=== PATIENT | female | born 1955 | race Two or more races ===

== ENCOUNTER 2016-08-28 00:39 | Inpatient (IN) | payer OTHER ==
[2016-08-28] VITALS (10 sets, daily range): BP systolic 117–138; BP diastolic 59–76; PULSE 48–89; RESP 16–20; Ht 160 cm; Wt 97.8 kg
[~2016-08-28] VITALS: Ht 160 cm; Wt 97.8 kg
[~2016-08-28 00:39] MED LIST: ALBU8.5H3; AMLO-145 PO; ASPI-664; GLUC1CAP48 PO; LORA10TA3 PO; METO100T PO; PRED20TA PO; hctz; same meds
[2016-08-28] MEDS ORDERED: ASPIRIN 325 MG TAB PO STA (00:48)
[2016-08-28] MEDS ORDERED: SOD CHLORIDE 0.9% 500 ML IV STA (00:48)
[2016-08-28 01:41] LABS: ADD SCAN DIFF NO
[2016-08-28 01:44] LABS: BASOPHILS % 0.5 % (0.0-2.0); EOSINOPHILS # 0.1 10^3/ul (0.0-0.5); EOSINOPHILS % 1.8 % (0.0-7.0); HEMATOCRIT 39.7 % (37.0-47.0); HEMOGLOBIN 12.9 g/dl (12.0-16.0); LYMPHOCYTES # 2.1 10^3/ul (0.8-2.9); LYMPHOCYTES % 37.8 % (15.0-51.0); MEAN CORPUSCULAR HEMOGLOBIN 30.7 pg (29.0-33.0); MEAN CORPUSCULAR HGB CONC 32.5 g/dl (32.0-37.0); MEAN CORPUSCULAR VOLUME 94.5 fl (82.0-101.0); MEAN PLATELET VOLUME 12.1 fl (7.4-10.4); MONOCYTE # 0.7 10^3/ul (0.3-0.9); MONOCYTES % 13.3 % (0.0-11.0); NEUTROPHIL # 2.5 10^3/ul (1.6-7.5); NEUTROPHILS % 46.2 % (39.0-77.0); PLATELET COUNT 202 10^3/UL (140-415); RED CELL DISTRIBUTION WIDTH 14.1 % (11.5-14.5); WHITE BLOOD COUNT 5.5 10^3/ul (4.8-10.8)
--- NOTE | 2016-08-28 01:47 | ERA ---
ER Documentation Chief Complaint Date/Time DATE: 08/28/16 TIME: 01:46 Chief Complaint Pt staes, "I feel weird and my heart is beating." HPI This 61-year-old female presents to the ER with her son for feeling of palpitations, chest discomfort and impending doom. Says she does not initially have chest pain but has a very strange sensation in her chest that she has not had before this started 2 hours prior and she still feels it. Denies nausea has some shortness of breath. Also feels somewhat lightheaded. Patient is atrial fibrillation initially denied that she had any history of an irregular heartbeat. However the patient is on Eliquis and metoprolol. ROS All systems reviewed and are negative except as per history of present illness. Medications Home Meds Reported Medications [same meds] No Conflict Check 11/28/12 [hctz] No Conflict Check, 25 CAP DAILY 09/29/12 Gluc 2KCL/Chondr/Mary Hy/Hy Ac (GLUCOSAMINE & CHONDROITIN CAP) 1 Each Capsule, 1 EACH PO DAILY 09/29/12 Loratadine* (Loratadine*) 10 Mg Tablet, 10 MG PO DAILY 09/29/12 Amlodipine Besylate* (Amlodipine Besylate*) 5 Mg Tablet, 5 MG PO DAILY 09/29/12 Aspirin (Aspirin Low Dose) 81 Mg Tablet.dr, daily 04/27/11 Metoprolol (Lopressor) 100 Mg Tablet, DAILY 04/27/11 Prednisone (Prednisone) 20 Mg Tablet, 1 TAB PO BID 04/27/11 Albuterol Sulfate* (Proair HFA*) 8.5 Gm Hfa.aer.ad 04/27/11 Allergies Allergies: Coded Allergies: No Known Allergy (Verified , 11/28/12) PMhx/Soc Medical and Surgical Hx: pt denies Surgical Hx History of Surgery: No Anesthesia Reaction: No Hx Neurological Disorder: No Hx Respiratory Disorders: No Hx Cardiac Disorders: Yes (hypertension) Hx Psychiatric Problems: No Hx Miscellaneous Medical Probl: No Hx Alcohol Use: No Hx Substance Use: No Hx Tobacco Use: No Smoking Status: Never smoker Physical Exam Vitals Vital Signs Date Time Temp Pulse Resp B/P Pulse Ox O2 Delivery O2 Flow Rate FiO2 08/28/16 03:11 66 16 136/86 97 Room Air 08/28/16 01:40 72 16 142/80 100 Room Air 08/28/16 00:43 98.1 94 16 143/79 100 Physical Exam Const: [] Mild distress, appears in Head: Atraumatic Eyes: Normal Conjunctiva ENT: Normal External Ears, Nose and Mouth. Neck: Full range of motion..~ No meningismus. Resp: Clear to auscultation bilaterally Cardio: Irregularly irregular, no murmurs Abd: Soft, non tender, non distended. Normal bowel sounds Skin: No petechiae or rashes Back: No midline or flank tenderness Ext: No cyanosis, or edema Neur: Awake and alert and oriented 3 Psych: Normal Mood and Affect Result Diagram: 08/28/1611408/28/16114 Results 24 hrs Laboratory Tests Test 08/28/16 01:15 White Blood Count 5.510^3/ul Red Blood Count 4.2010^6/ul Hemoglobin 12.9g/dl Hematocrit 39.7% Mean Corpuscular Volume 94.5fl Mean Corpuscular Hemoglobin 30.7pg Mean Corpuscular Hemoglobin Concent 32.5g/dl Red Cell Distribution Width 14.1% Platelet Count 08839^3/UL Mean Platelet Volume 12.1fl Neutrophils % 46.2% Lymphocytes % 37.8% Monocytes % 13.3% Eosinophils % 1.8% Basophils % 0.5% Nucleated Red Blood Cells % 0.0/100WBC Neutrophils # 2.510^3/ul Lymphocytes # 2.110^3/ul Monocytes # 0.710^3/ul Eosinophils # 0.110^3/ul Basophils # 0.010^3/ul Nucleated Red Blood Cells # 0.010^3/ul Prothrombin Time 15.3Sec Prothrombin Time Ratio 1.2 INR International Normalized Ratio 1.20 Activated Partial Thromboplast Time 29.0Sec Sodium Level 139mmol/L Potassium Level 3.4mmol/L Chloride Level 99mmol/L Carbon Dioxide Level 29mmol/L Anion Gap 14 Blood Urea Nitrogen 10mg/dl Creatinine 0.68mg/dl Glucose Level 115mg/dl Calcium Level 9.3mg/dl Troponin I < 0.012ng/ml B-Type Natriuretic Peptide 564PG/ML Current Medications Medications (Trade) Dose Ordered Sig/Jordon Route PRN Reason Start Time Stop Time Status Last Admin Dose Admin Sodium Chloride (NS) 500 ml @ 500 mls/hr Q1H STAT IV 08/28/16 00:48 08/28/16 01:47 DC 08/28/16 01:23 Aspirin (Aspirin) 325 mg ONCE STAT PO 08/28/16 00:48 08/28/16 00:50 DC 08/28/16 01:23 Nitroglycerin (Nitroglycerin (Sl Tab) 0.4 Mg) 1 tab ONCE ONCE SL 08/28/16 03:00 08/28/16 03:01 DC 08/28/16 02:59 Procedures/MDM Chest pain/discomfort and palpitations and patient with multiple risk factors for acute coronary syndrome. Initial troponin is negative. Patient was given aspirin 325 mg as well as nitroglycerin. She has rate controlled atrial fibrillation. She will be admitted for trending of troponins as well as further cardiac workup. I spoke to Dr. Locke who will be admitting. EKG interpretation: Atrial fibrillation rate of 72, 2 PVCs, no ST or T-wave changes concerning for acute ischemia, normal axis. case monitor interpretation: Rate controlled A. fib no arrhythmias. Chest x-ray interpretation: Poor inspiration. I see no acute process. I see no infiltrates, no pulmonary edema, no widened mediastinum, no fractures Departure Diagnosis: Primary Impression: Chest pain Additional Impression: Palpitations Condition: Stable LINDSAY FARRIS DO Aug 28, 2016 01:47
--- NOTE | 2016-08-28 01:50 | RADRPT ---
PROCEDURE: XR Chest. CLINICAL INDICATION: Chest pain TECHNIQUE: Single frontal view of the chest was obtained COMPARISON: 09/29/2012 FINDINGS: The patient is rotated to the right. There is hypoinflation of the lungs. There is enlargement of the cardiac silhouette and mild pulmonary vascular congestion appearing since previous study. Hypoi nflation of the lungs accentuates the lung interstitium. Mild bibasilar atelectasis is apparent. C alcification in the aortic arch. ECG leads projected over the chest. Degenerative changes in thora cic spine. There is no pleural effusion or pneumothorax. IMPRESSION: Hypoinflation lungs, enlargement of the cardiac silhouette, mild pulmonary vascular congestion and b ibasilar atelectasis appearing since previous study. Please see above. RPTAT: HJES .Andre Shields MD, MD Date Time Electronically viewed and signed by .Andre Shields MD, MD on 08/28/2016 01:50 .S/
[2016-08-28 02:09] LABS: INR 1.2; PROTIME 15.3 Sec (12.2-14.2); PT RATIO 1.2
[2016-08-28 02:14] LABS: ANION GAP 14 (8-16); BLOOD UREA NITROGEN 10 mg/dl (7-20); CALCIUM 9.3 mg/dl (8.4-10.2); CARBON DIOXIDE 29 mmol/L (21-31); CHLORIDE 99 mmol/L (97-110); CREATININE 0.68 mg/dl (0.44-1.00); GLUCOSE 115 mg/dl (70-220); POTASSIUM 3.4 mmol/L (3.5-5.1); SODIUM 139 mmol/L (135-144)
[2016-08-28 02:30] LABS: B-TYPE NATRIURETIC PEPTIDE 564 PG/ML (0-125)
[2016-08-28 02:51] LABS: TROPONIN-I < 0.012 ng/ml (0.00-0.12)
[2016-08-28] MEDS ORDERED: NITROGLYCERIN (SL) 0.4 MG TAB SL ONE (03:00)
[2016-08-28] MEDS ORDERED: ONDANSETRON 4 MG INJ IV PRN (05:00)
[2016-08-28] MEDS ORDERED: ACETAMINOPHEN 325 MG TAB PO PRN (05:00)
[2016-08-28] MEDS ORDERED: APIX5TAB PO (07:48)
[2016-08-28] MEDS ORDERED: METOPROLOL 50 MG TAB PO SCH (09:00)
[2016-08-28] MEDS: ASPIRIN (EC) 81 MG TAB PO SCH (09:08)
[2016-08-28] MEDS: APIXABAN 5 MG TABLET PO SCH ×2 (09:08→21:35)
[2016-08-28] MEDS: AMLODIPINE 10 MG TAB PO SCH (09:09)
[2016-08-28] MEDS: HYDROCHLOROTHIAZIDE 25 MG TAB PO SCH (09:09)
[2016-08-28 12:08] LABS: ADD SCAN DIFF NO
[2016-08-28] MEDS ORDERED: POTASSIUM CHLORIDE (SR) 20 MEQ TAB PO STA (12:10)
[2016-08-28 12:13] LABS: BASOPHILS % 0.5 % (0.0-2.0); EOSINOPHILS % 0.7 % (0.0-7.0); HEMATOCRIT 37.6 % (37.0-47.0); HEMOGLOBIN 12.5 g/dl (12.0-16.0); LYMPHOCYTES # 1.7 10^3/ul (0.8-2.9); LYMPHOCYTES % 40.1 % (15.0-51.0); MEAN CORPUSCULAR HEMOGLOBIN 31.1 pg (29.0-33.0); MEAN CORPUSCULAR HGB CONC 33.2 g/dl (32.0-37.0); MEAN CORPUSCULAR VOLUME 93.5 fl (82.0-101.0); MEAN PLATELET VOLUME 12.3 fl (7.4-10.4); MONOCYTE # 0.5 10^3/ul (0.3-0.9); NEUTROPHILS % 46.5 % (39.0-77.0); PLATELET COUNT 187 10^3/UL (140-415); RED BLOOD COUNT 4.02 10^6/ul (4.20-5.40); RED CELL DISTRIBUTION WIDTH 14.1 % (11.5-14.5); WHITE BLOOD COUNT 4.2 10^3/ul (4.8-10.8)
--- NOTE | 2016-08-28 12:14 | HP ---
Date/Time of Note Date/Time of Note DATE: 08/28/16 TIME: 12:12 Assessment/Plan VTE Prophylaxis VTE Prophylaxis Intervention: other Lines/Catheters IV Catheter Type (from [facility]): Peripheral IV Assessment/Plan Chief Complaint/Hosp Course 1) chest pain - rule out myocardial infarction - check 2D echocardiogram - consult cardiology - monitor 2) hypertension - continue medications - monitor blood pressure Problems: HPI/ROS Admit Date/Time Admit Date/Time Aug 28, 2016 at 04:37 Hx of Present Illness Patient with hypertension comes in with 1 day of chest discomfort. Pain occurred on 2 different occasions lasting several minutes each time. She denies any associated shortness of breath, nausea or vomiting. Patient denies any other medical problems including diabetes, hypercholesterolemia. Patient had previously seen Dr. Nguyen. PMH/Family/Social Past Medical History Medical History: hypertension Social History Smoking Status: Never smoker Exam/Review of Systems Vital Signs Vitals Vital Signs Date Time Temp Pulse Resp B/P Pulse Ox O2 Delivery O2 Flow Rate FiO2 08/28/16 12:09 98.8 67 20 126/59 98 08/28/16 06:30 Room Air Exam Constitutional: well developed Head: atraumatic, normocephalic Neck: supple Respiratory: clear to auscultation Cardiovascular: regular rate and rhythm Gastrointestinal: non-tender, soft Extremities: normal pulses Labs Result Diagram: 08/28/1611408/28/16 011 Medications Medications Current Medications Amlodipine Besylate (Norvasc) 10 mg DAILY PO Last administered on 08/28/16 09: 09; Admin Dose 10 MG; Start 08/28/16 at 09:00 Aspirin (Halfprin) 81 mg daily PO Last administered on 08/28/16 09:08; Admin Dose 81 MG; Start 08/28/16 at 09:00 Metoprolol Tartrate (Lopressor) 50 mg DAILY PO Last administered on 08/28/16 09 :08; Admin Dose 50 MG; Start 08/28/16 at 09:00 Hydrochlorothiazide (Hydrochlorothiazide) 25 mg DAILY PO Last administered on 09:09; Admin Dose 25 MG; Start 08/28/16 at 09:00 Apixaban (Eliquis) 5 mg BID PO Last administered on 08/28/16 09:08; Admin Dose 5 MG; Start 08/28/16 at 09:00 RILEY,JENY Y Aug 28, 2016 12:14
[2016-08-28 13:06] LABS: CHOL/HDL RATIO 2.6 RATIO; CREATINE KINASE 65 IU/L (23-200); CREATININE 0.6 mg/dl (0.44-1.00); POTASSIUM 3.5 mmol/L (3.5-5.1)
[2016-08-28 13:10] LABS: TROPONIN-I < 0.012 ng/ml (0.00-0.12)
[2016-08-28 14:40] LABS: CREATINE KINASE 68 IU/L (23-200)
[2016-08-28 14:58] LABS: CK-MB 0.41 ng/ml (0.0-2.4); TROPONIN-I < 0.012 ng/ml (0.00-0.12)
[2016-08-28] MEDS: METOPROLOL 50 MG TAB PO SCH (21:00)
[2016-08-29] VITALS (12 sets, daily range): BP systolic 110–137; BP diastolic 53–81; PULSE 53–63; RESP 16–20
[2016-08-29 08:01] LABS: CHOL/HDL RATIO 2.7 RATIO
[2016-08-29] MEDS: AMLODIPINE 10 MG TAB PO SCH (09:34)
[2016-08-29] MEDS: ASPIRIN (EC) 81 MG TAB PO SCH (09:35)
[2016-08-29] MEDS: APIXABAN 5 MG TABLET PO SCH ×2 (09:35→20:23)
[2016-08-29] MEDS: METOPROLOL 50 MG TAB PO SCH ×2 (09:35→20:23)
[2016-08-29] MEDS: HYDROCHLOROTHIAZIDE 25 MG TAB PO SCH (09:35)
--- NOTE | 2016-08-29 13:45 | RADRPT ---
Vent Rate: 64 bpm RR Interval: 0 msec NC Interval: 0 msec QRS Duration: 114 msec QT Interval: 452 msec QTC Interval: 466 msec P-R-T Kinder: 0 - 52 - -63 degrees Junctional rhythm with frequent premature ventricular complexes Incomplete right bundle branch block T wave abnormality, consider inferior ischemia Prolonged QT Abnormal ECG Electronically Signed By: Kayla Hudson [id number]
--- NOTE | 2016-08-29 15:37 | PN ---
Date/Time of Note Date/Time of Note DATE: 08/29/16 TIME: 15:34 Assessment/Plan VTE Prophylaxis VTE Prophylaxis Intervention: SCD's Lines/Catheters IV C[facility]ter Type (from [facility]): Peripheral IV Assessment/Plan Chief Complaint/Hosp Course Patient is admitted with chest pain and palpitations, currently denies any chest pain stated that she is anxious about Lexiscan. Patient denies fever chills denies shortness of breath. Patient is currently in atrial fibrillation at controlled rate. Problems: Assessment/Plan -Chest pain, rule out acute coronary syndrome. Dr. Courtney is following and cardiology consultation. Pending Lexiscan. -Atrial fibrillation, continue Eliquis. -Hypertension, continue Norvasc metoprolol and hydrochlorothiazide. Further recommendations based on clinical course. Plan of care discussed with Dr. Key. Exam/Review of Systems Vital Signs Vitals Vital Signs Date Time Temp Pulse Resp B/P Pulse Ox O2 Delivery O2 Flow Rate FiO2 08/29/16 12:32 53 08/29/16 11:48 98.0 18 137/76 99 08/28/16 06:30 Room Air Intake and Output 08/28/16 08/28/16 08/29/16 15:00 23:00 07:00 Intake Total 406 ml Balance 406 ml Exam Constitutional: alert, oriented Head: normocephalic Neck: supple Respiratory: normal air movement Cardiovascular: irregular rhythm, nl pulses Gastrointestinal: non-tender, soft Extremities: normal pulses Neurological: nl mental status Results Result Diagram: 08/28/16 1121 08/28/16 1121 Results 24 hrs Laboratory Tests Test 08/28/16 19:05 08/29/16 00:25 08/29/16 06:40 08/29/16 06:48 Troponin I < 0.012 < 0.012 < 0.012 Triglycerides Level 62 Cholesterol Level 118 LDL Cholesterol, Calculated 63 HDL Cholesterol 43 Cholesterol/HDL Ratio 2.7 Medications Medications Current Medications Amlodipine Besylate (Norvasc) 10 mg DAILY PO Last administered on 08/29/16 09: 34; Admin Dose 10 MG; Start 08/28/16 at 09:00 Aspirin (Halfprin) 81 mg daily PO Last administered on 08/29/16 09:35; Admin Dose 81 MG; Start 08/28/16 at 09:00 Hydrochlorothiazide (Hydrochlorothiazide) 25 mg DAILY PO Last administered on 09:35; Admin Dose 25 MG; Start 08/28/16 at 09:00 Apixaban (Eliquis) 5 mg BID PO Last administered on 08/29/16 09:35; Admin Dose 5 MG; Start 08/28/16 at 09:00 Metoprolol Tartrate (Lopressor) 50 mg BID PO Last administered on 08/29/16 09: 35; Admin Dose 50 MG; Start 08/28/16 at 21:00 JAYDEN MOSER Aug 29, 2016 15:37
--- NOTE | 2016-08-29 18:27 | CONS ---
Date/Time of Note Date/Time of Note DATE: 08/29/16 TIME: 18:23 Assessment/Plan Assessment/Plan Chief Complaint/Hosp Course IMP: 1.Chest pain-negative trop x 3 2.AF-rate controlled 3.palpitations-likely secondary to AF 4.HTN-well controlled 5. Dylipidemia-LDL 63 HDL 43 Recc: -Tele -serial ecg's -Continue eliquis -Contineu bb/CCB -Contineu asa -AM stress test and will f/u echo Problems: Consultation Date/Type/Reason Admit Date/Time Aug 28, 2016 at 04:37 Initial Consult Date 08/28/2016 Type of Consultation: cardiology Reason for Consultation AF/chest pain Referring Provider: JAEL DOUGLASS MD Exam/Review of Systems Vital Signs Vitals Vital Signs Date Time Temp Pulse Resp B/P Pulse Ox O2 Delivery O2 Flow Rate FiO2 08/29/16 16:35 60 08/29/16 16:07 98.5 18 131/66 99 08/28/16 06:30 Room Air Intake and Output 08/28/16 08/28/16 08/29/16 15:00 23:00 07:00 Intake Total 406 ml Balance 406 ml Exam Review of Systems: CONSTITUTIONAL: No fevers, chills. PULMONARY: No sob CARDIOVASCULAR: intermittent chest pain GASTROINTESTINAL: No nausea/vomiting. GENITOURINARY: No hematuria/dysuria. MUSCULOSKELETAL: No myagias/arthalgias. PSYCHIATRIC: The patient denies depression. NEUROLOGIC: No weakness Constitutional: alert Psych: no complaints Head: normocephalic ENMT: mucosa pink and moist Neck: jvd (8 cm water), supple Respiratory: clear to auscultation Cardiovascular: irregular rhythm Gastrointestinal: non-tender, soft Musculoskeletal: muscle tone (normal) Extremities: edema (none) Neurological: other (focal deficits) Results Result Diagram: 08/28/16 1121 08/28/16 1121 Results 24 hrs Laboratory Tests Test 08/28/16 19:05 08/29/16 00:25 08/29/16 06:40 08/29/16 06:48 Troponin I < 0.012 < 0.012 < 0.012 Triglycerides Level 62 Cholesterol Level 118 LDL Cholesterol, Calculated 63 HDL Cholesterol 43 Cholesterol/HDL Ratio 2.7 Medications Medications Current Medications Amlodipine Besylate (Norvasc) 10 mg DAILY PO Last administered on 08/29/16 09: 34; Admin Dose 10 MG; Start 08/28/16 at 09:00 Aspirin (Halfprin) 81 mg daily PO Last administered on 08/29/16 09:35; Admin Dose 81 MG; Start 08/28/16 at 09:00 Hydrochlorothiazide (Hydrochlorothiazide) 25 mg DAILY PO Last administered on 09:35; Admin Dose 25 MG; Start 08/28/16 at 09:00 Apixaban (Eliquis) 5 mg BID PO Last administered on 08/29/16 09:35; Admin Dose 5 MG; Start 08/28/16 at 09:00 Metoprolol Tartrate (Lopressor) 50 mg BID PO Last administered on 08/29/16 09: 35; Admin Dose 50 MG; Start 08/28/16 at 21:00 EMMANUEL WERNER Aug 29, 2016 18:27
--- NOTE | 2016-08-29 20:57 | RADRPT ---
Echocardiogram Report Patient Name: VICTORINO BURRIS Gender: Female Date: 1955 Study Date: 29-Aug-2016 Motorcycle Tester: Alberto Steele [facility] Location: [id number] Ref. Physician: JENY RILEY Quality: Good Procedures: Transthoracic echocardiogram with complete 2D, M-Mode, and doppler examination. Indications: Atrial Fibrillation with chest discomfort. 2D/M Mode Doppler Measurement Value Normal Ranges Measurement Value Normal Ranges LVIDd 2D 4.2 3.5 - 5.6 cm AV Peak Jayson 1.3 m/sec LVIDs 2D 2.9 2.1 - 4.1 cm AV Peak PG 6.5 mmHg LVPWd 2D 1.0 0.6 - 1.1 cm AI Peak PG 69.4 mmHg IVSd 2D 0.9 0.6 - 1.1 cm AI Peak Jayson 4.2 m/sec AoR Diam 2D 2.3 2.0 - 3.7 cm AI PHT 583.3 msec EDV 2D 80.1 cm3 TR Peak Jayson 2.9 m/sec ESV 2D 23.9 cm3 TR Peak PG 33.3 mmHg LA Dimen 2D 4.0 2.3 - 4.0 cm RVSP 48.0 mmHg Findings Left Ventricle: Lower limits of normal systolic function. Normal left ventricular cavity size. Normal left ventricular wall thickness. Ejection fraction is visually estimated at 50 %. Tissue Doppler/Mitral Doppler indices are indeterminate in this study due to the presence of atrial fibrillation. Right Ventricle: Normal right ventricular size. Normal right ventricular systolic function. Left Atrium: There is mild enlargement of left atrium. Right Atrium: There is moderate enlargement of right atrium. Mitral Valve: Mitral valve leaflets appear mildly thickened. Mild mitral annular calcification. Moderate mitral valve regurgitation. Aortic Valve: No hemodynamically significant aortic stenosis by doppler. Aortic cusps appear mildly calcified. Mild aortic valve regurgitation. Tricuspid Valve: Normal appearance of the tricuspid valve. Estimated peak PA systolic pressure 48 mmHg. There is moderate tricuspid regurgitation. Pulmonic Valve: Pulmonic valve not well visualized. Pericardium: Normal pericardium with no significant pericardial effusion. Aorta: Normal aortic root. IVC: Dilated IVC without respiratory collapse consistent with elevated right atrial pressure. Conclusions 1.Lower limits of normal systolic function. Normal left ventricular cavity size. Normal left ventricular wall thickness. Ejection fraction is visually estimated at 50 %. Tissue Doppler/Mitral Doppler indices are indeterminate in this study due to the presence of atrial fibrillation. 2.There is mild enlargement of left atrium. 3.There is moderate enlargement of right atrium. 4.Mitral valve leaflets appear mildly thickened. Mild mitral annular calcification. Moderate mitral valve regurgitation. 5.No hemodynamically significant aortic stenosis by doppler. Aortic cusps appear mildly calcified. Mild aortic valve regurgitation. 6.Normal appearance of the tricuspid valve. Estimated peak PA systolic pressure 48 mmHg. There is moderate tricuspid regurgitation. Electronically Signed By: Shadi Courtney 29-Aug-2016 20:56:42 -0700 Patient Name: VICTORINO BURRIS Study Date: 29-Aug-2016 [id number]
[2016-08-29] MEDS ORDERED: APIXABAN 5 MG TABLET PO SCH (21:00)
[2016-08-30] VITALS (10 sets, daily range): BP systolic 103–138; BP diastolic 52–70; PULSE 37–73; RESP 16–18
[2016-08-30 07:46] LABS: ADD SCAN DIFF NO
[2016-08-30 07:54] LABS: EOSINOPHILS # 0.1 10^3/ul (0.0-0.5); EOSINOPHILS % 2.1 % (0.0-7.0); HEMATOCRIT 39.2 % (37.0-47.0); HEMOGLOBIN 12.9 g/dl (12.0-16.0); LYMPHOCYTES # 1.8 10^3/ul (0.8-2.9); LYMPHOCYTES % 46.6 % (15.0-51.0); MEAN CORPUSCULAR HEMOGLOBIN 30.9 pg (29.0-33.0); MEAN CORPUSCULAR HGB CONC 32.9 g/dl (32.0-37.0); MEAN CORPUSCULAR VOLUME 93.8 fl (82.0-101.0); MEAN PLATELET VOLUME 12.1 fl (7.4-10.4); MONOCYTE # 0.5 10^3/ul (0.3-0.9); MONOCYTES % 12.6 % (0.0-11.0); NEUTROPHIL # 1.5 10^3/ul (1.6-7.5); NEUTROPHILS % 37.4 % (39.0-77.0); PLATELET COUNT 187 10^3/UL (140-415); RED BLOOD COUNT 4.18 10^6/ul (4.20-5.40); RED CELL DISTRIBUTION WIDTH 13.9 % (11.5-14.5); WHITE BLOOD COUNT 3.9 10^3/ul (4.8-10.8)
[2016-08-30 08:14] LABS: CALCIUM 9.4 mg/dl (8.4-10.2); CREATININE 0.53 mg/dl (0.44-1.00); POTASSIUM 3.3 mmol/L (3.5-5.1)
[2016-08-30] MEDS: METOPROLOL 50 MG TAB PO SCH ×2 (09:00→13:36)
--- NOTE | 2016-08-30 09:46 | CONS ---
Date/Time of Note Date/Time of Note DATE: 08/30/16 TIME: 09:43 Assessment/Plan Assessment/Plan Additional Assessment/Plan 1.Chest pain-negative trop x 3 - will monitor clinically 2.AF-rate controlled - stable now 3.palpitations-likely secondary to AF - better now 4.HTN-well controlled - in good fluid status 5. Dylipidemia-LDL 63 HDL 43 Consultation Date/Type/Reason Admit Date/Time Aug 28, 2016 at 04:37 Initial Consult Date Type of Consultation: cardiology Referring Provider: JAEL DOUGLASS MD 24 HR Interval Summary Free Text/Dictation NO acute events - in a. fib - rate controlled ROS: No fever, no chills, no nausea, no vomiting, no diarrhea/constipation No recent weight changes No chest pain, no PND, no orthopnea No dizziness, blurred vision No thirst, no heat or cold intolerance Exam/Review of Systems Vital Signs Vitals Vital Signs Date Time Temp Pulse Resp B/P Pulse Ox O2 Delivery O2 Flow Rate FiO2 08/30/16 08:00 54 08/30/16 07:31 98.0 18 138/68 99 08/28/16 06:30 Room Air Intake and Output 08/29/16 08/29/16 08/30/16 15:00 23:00 07:00 Intake Total 240 ml Balance 240 ml Exam General: WN/WD/NAD, AOx 3 HEENT: Unicetric/atraumatic/EOMI (follow commands) NECK: JVD elevated, no thyromegaly Lymph: no lymphadenopathy HEART: IR Irregular with no S3, II/ systolic murmur at apex LUNGS: Coarse sounds ABD: soft, NT, ND, +BS : Intact Neuro: non focal SKIN: chronic changes EXT: trace edema Results Result Diagram: 08/30/16 0647 08/30/16 0647 Results 24 hrs Laboratory Tests Test 08/30/16 06:47 White Blood Count 3.9 L Red Blood Count 4.18 L Hemoglobin 12.9 Hematocrit 39.2 Mean Corpuscular Volume 93.8 Mean Corpuscular Hemoglobin 30.9 Mean Corpuscular Hemoglobin Concent 32.9 Red Cell Distribution Width 13.9 Platelet Count 187 Mean Platelet Volume 12.1 H Neutrophils % 37.4 L Lymphocytes % 46.6 Monocytes % 12.6 H Eosinophils % 2.1 Basophils % 1.0 Nucleated Red Blood Cells % 0.0 Neutrophils # 1.5 L Lymphocytes # 1.8 Monocytes # 0.5 Eosinophils # 0.1 Basophils # 0.0 Nucleated Red Blood Cells # 0.0 Sodium Level 132 L Potassium Level 3.3 L Chloride Level 100 Carbon Dioxide Level 29 Anion Gap 6 L Blood Urea Nitrogen 8 Creatinine 0.53 Glucose Level 88 Calcium Level 9.4 Medications Medications Current Medications Amlodipine Besylate (Norvasc) 10 mg DAILY PO Last administered on 08/29/16 09: 34; Admin Dose 10 MG; Start 08/28/16 at 09:00 Aspirin (Halfprin) 81 mg daily PO Last administered on 08/29/16 09:35; Admin Dose 81 MG; Start 08/28/16 at 09:00 Hydrochlorothiazide (Hydrochlorothiazide) 25 mg DAILY PO Last administered on 09:35; Admin Dose 25 MG; Start 08/28/16 at 09:00 Apixaban (Eliquis) 5 mg BID PO Last administered on 08/29/16 20:23; Admin Dose 5 MG; Start 08/28/16 at 09:00 Metoprolol Tartrate (Lopressor) 50 mg BID PO Last administered on 08/29/16 20: 23; Admin Dose 50 MG; Start 08/28/16 at 21:00 MARLENY WHITLOCK MD Aug 30, 2016 09:46
[2016-08-30] MEDS ORDERED: REGADENOSON 0.4 MG/5 ML SYG ONE (10:04)
[2016-08-30] MEDS: HYDROCHLOROTHIAZIDE 25 MG TAB PO SCH (13:36)
[2016-08-30] MEDS: APIXABAN 5 MG TABLET PO SCH (13:36)
[2016-08-30] MEDS: AMLODIPINE 10 MG TAB PO SCH (13:36)
[2016-08-30] MEDS: ASPIRIN (EC) 81 MG TAB PO SCH (13:36)
--- NOTE | 2016-08-30 14:02 | RADRPT ---
PROCEDURE: Nuclear medicine myocardial stress and rest scan. CLINICAL INDICATION: Chest pain. TECHNIQUE: The patient was stressed with 0.4 mg IV Lexiscan. 10.5 mCi technetium 99m Tetrofosmin (Myoview) was administered rest. 30.7 mCi technetium 99m Tetrofosmin (Myoview) was administered du ring stress. Images were obtained and reconstructed in the short axis, horizontal long axis, and ve rtical long axis. Gated images were obtained and ejection fraction was calculated. COMPARISON: No prior study is available for comparison. FINDINGS: The stress and rest images demonstrate a small region of decreased uptake in the apex on the stress images which normalizes on the rest images. There is no other fixed abnormality or reversible abnorm ality. There is no evidence of transient ischemic dilatation. Wall motion is normal. There is normal wall thickening during systole. Ejection fraction at stress is 64%. IMPRESSION: 1. Small region of reversibility in the apex, nonspecific. 2. Otherwise unremarkable study. 3. Ejection fraction at stress is 64%. RPTAT: QQ .Sivakumar Song MD, MD Date Time Electronically viewed and signed by .Sivakumar Song MD, on 08/30/2016 14:02 .R/
[2016-08-30] MEDS ORDERED: POTASSIUM CHLORIDE 20 MEQ POWDER FOR ORAL SOLN PO ONE (17:30)
--- NOTE | 2016-08-30 17:30 | PDOCDIS ---
Discharge Instructions CONDITION Patient Condition: Good HOME CARE INSTRUCTIONS: Diet Instructions: Low Fat /CholesterolSpecial Diet: Cardiac diet ACTIVITY: Activity Restrictions: No Restrictions FOLLOW UP/APPOINTMENTS Follow-up Plan Follow-up with PMD in 1-2 weeks JAYDEN MOSER Aug 30, 2016 17:30
--- NOTE | 2016-08-30 18:03 | DS ---
Date/Time of Note Date/Time of Note DATE: 08/30/16 TIME: 17:57 Discharge Summary Admission/Discharge Info Admit Date/Time Aug 28, 2016 at 04:37 Discharge Date/Time Patient Condition: Good Hx of Present Illness The patient is a 61-year-old female with hypertension and atrial fibrillation, on Eliquis. Patient was brought to emergency room by her son due to complaints of palpitations and 1 day of chest discomfort. Pain occurred on 2 different occasions lasting several minutes each time. She denies any associated shortness of breath, nausea or vomiting. Patient denies any other medical problems including diabetes, hypercholesterolemia. Patient had previously seen Dr. Nguyen. Hospital Course Assessment/Plan -Chest pain, acute coronary syndrome ruled out. Dr. Sherwin Gan related patient in cardiology consultation. Series of troponin was negative. Lexiscan was no ischemia. -Atrial fibrillation, continue Eliquis. Patient was monitored on telemetry floor, remained in atrial fibrillation at controlled rate. -Hypertension, continue Norvasc metoprolol and hydrochlorothiazide. -Mild hypo-kalemia, potassium was replaced. Patient's condition improved patient denies any chest pain denies short of breath denies any palpitations, patient will be discharged home. Home Meds Reported Medications Apixaban* (Eliquis*) 5 Mg Tablet, 5 MG PO BID, TAB 08/28/16 [same meds] No Conflict Check 11/28/12 [hctz] No Conflict Check, 25 CAP DAILY 09/29/12 Gluc 2KCL/Chondr/Mary Hy/Hy Ac (GLUCOSAMINE & CHONDROITIN CAP) 1 Each Capsule, 1 EACH PO DAILY 09/29/12 Loratadine* (Loratadine*) 10 Mg Tablet, 10 MG PO DAILY 09/29/12 Amlodipine Besylate* (Amlodipine Besylate*) 5 Mg Tablet, 10 MG PO DAILY 09/29/12 Aspirin (Aspirin Low Dose) 81 Mg Tablet.dr, daily 04/27/11 Metoprolol (Lopressor) 100 Mg Tablet, 50 MG PO DAILY 04/27/11 Prednisone (Prednisone) 20 Mg Tablet, 1 TAB PO BID 04/27/11 Albuterol Sulfate* (Proair HFA*) 8.5 Gm Hfa.aer.ad 04/27/11 Follow-up Plan Follow-up with Dr. Juarez in 2 weeks Primary Care Provider Elias Albright Time spent on discharge: < 30 minutes Pending Labs Laboratory Tests Test 08/30/16 06:47 White Blood Count 3.910^3/ul (4.8-10.8) Red Blood Count 4.1810^6/ul (4.20-5.40) Hemoglobin 12.9g/dl (12.0-16.0) Hematocrit 39.2% (37.0-47.0) Mean Corpuscular Volume 93.8fl (82.0-101.0) Mean Corpuscular Hemoglobin 30.9pg (29.0-33.0) Mean Corpuscular Hemoglobin Concent 32.9g/dl (32.0-37.0) Red Cell Distribution Width 13.9% (11.5-14.5) Platelet Count 11916^3/UL (140-415) Mean Platelet Volume 12.1fl (7.4-10.4) Neutrophils % 37.4% (39.0-77.0) Lymphocytes % 46.6% (15.0-51.0) Monocytes % 12.6% (0.0-11.0) Eosinophils % 2.1% (0.0-7.0) Basophils % 1.0% (0.0-2.0) Nucleated Red Blood Cells % 0.0/100WBC (0.0-0.0) Neutrophils # 1.510^3/ul (1.6-7.5) Lymphocytes # 1.810^3/ul (0.8-2.9) Monocytes # 0.510^3/ul (0.3-0.9) Eosinophils # 0.110^3/ul (0.0-0.5) Basophils # 0.010^3/ul (0.0-0.1) Nucleated Red Blood Cells # 0.010^3/ul (0.0-0.0) Sodium Level 132mmol/L (135-144) Potassium Level 3.3mmol/L (3.5-5.1) Chloride Level 100mmol/L (97-110) Carbon Dioxide Level 29mmol/L (21-31) Anion Gap 6 (8-16) Blood Urea Nitrogen 8mg/dl (7-20) Creatinine 0.53mg/dl (0.44-1.00) Glucose Level 88mg/dl (70-220) Calcium Level 9.4mg/dl (8.4-10.2) JAYDEN MOSER Aug 30, 2016 18:02
== END 2016-08-30 19:35 | disposition home or self-care (01) | DRG 313 ==
LOC: E/R 00:39 → MS4 04:37
PROVIDERS: ADMIT Internal Medicine Nephrology; ATTEND Internal Medicine
DX: R07.9 Chest pain, unspecified (principal); I10 Essential (primary) hypertension; R00.2 Palpitations; I48.91 Unspecified atrial fibrillation; E87.6 Hypokalemia; E78.5 Hyperlipidemia, unspecified
CPT/HCPCS: 36415; 71010; 78452; 80048; 80061; 82550; 82553; 83880; 84443; 84484; 85025; 85610; 85730; 93005; 93017; 93306; A9500; A9505; J2785; J7040

== ENCOUNTER 2016-11-19 00:50 | Emergency (ER) | payer MEDICAID, OTHER ==
[~2016-11-19] VITALS: Ht 162.6 cm; Wt 77.0 kg
[~2016-11-19 00:50] MED LIST changes: +APIX5TAB PO; -LORA10TA3 PO; -same meds
[2016-11-19 00:59] VITALS: Ht 162.6 cm; Wt 77.0 kg
--- NOTE | 2016-11-19 02:41 | RADRPT ---
PROCEDURE: XR Chest. CLINICAL INDICATION: Chest Pain. TECHNIQUE: Single frontal view of the chest. COMPARISON: 09/20/2012. FINDINGS: Cardiomegaly and atherosclerotic calcifications in the tortuous thoracic aorta. The lungs are clear. No signs of pleural fluid or pneumothorax are seen. The osseous structures and soft tissues are unr emarkable. IMPRESSION: No evidence for active cardiopulmonary disease. RPTAT: [facility] Physician Serena Date Time Electronically viewed and signed by Hyun Boland Physician on 11/19/2016 02:40 RS/
[2016-11-19 02:44] LABS: BASOPHILS % 0.6 % (0.0-2.0); EOSINOPHILS # 0.1 10^3/ul (0.0-0.5); HEMATOCRIT 44.4 % (37.0-47.0); HEMOGLOBIN 14.5 g/dl (12.0-16.0); LYMPHOCYTES # 1.4 10^3/ul (0.8-2.9); LYMPHOCYTES % 28.7 % (15.0-51.0); MEAN CORPUSCULAR HEMOGLOBIN 29.8 pg (29.0-33.0); MEAN CORPUSCULAR HGB CONC 32.7 g/dl (32.0-37.0); MEAN CORPUSCULAR VOLUME 91.2 fl (82.0-101.0); MEAN PLATELET VOLUME 11.8 fl (7.4-10.4); MONOCYTE # 0.4 10^3/ul (0.3-0.9); MONOCYTES % 8.7 % (0.0-11.0); NEUTROPHILS % 60.6 % (39.0-77.0); PLATELET COUNT 215 10^3/UL (140-415); RED BLOOD COUNT 4.87 10^6/ul (4.20-5.40); RED CELL DISTRIBUTION WIDTH 13.7 % (11.5-14.5)
[2016-11-19 02:59] LABS: ANION GAP 13 (8-16); BLOOD UREA NITROGEN 10 mg/dl (7-20); CALCIUM 9.6 mg/dl (8.4-10.2); CARBON DIOXIDE 30 mmol/L (21-31); CHLORIDE 102 mmol/L (97-110); CREATININE 0.68 mg/dl (0.44-1.00); GLUCOSE 114 mg/dl (70-220); POTASSIUM 3.4 mmol/L (3.5-5.1); SODIUM 142 mmol/L (135-144)
[2016-11-19 03:11] LABS: B-TYPE NATRIURETIC PEPTIDE 490 PG/ML (0-125)
[2016-11-19 03:38] LABS: TROPONIN-I < 0.012 ng/ml (0.00-0.12)
[2016-11-19 04:13] VITALS: BP 130/74; PULSE 66; RESP 16
[2016-11-19] MEDS ORDERED: HYDR50TA3 PO (04:53)
[2016-11-19] MEDS ORDERED: HYDR25TA6 PO (04:53)
[2016-11-19] MEDS ORDERED: RANO500T2 PO (04:57)
[2016-11-19] MEDS ORDERED: ASPI-535 PO (04:57)
--- NOTE | 2016-11-19 05:18 | ERD ---
ER Documentation Chief Complaint Date/Time DATE: 11/19/16 TIME: 05:13 Chief Complaint hear palpitation, feels 'HOT" on face HPI This 61-year-old female presents for having a hot face for a short time that resolved. At that time she felt like her heart was racing. The heart racing has resolved but her face still feels very warm. She did not have any chest pain or shortness of breath. She does have history of A. fib for which she is on Eliquis. ROS All systems reviewed and are negative except as per history of present illness. Medications Home Meds Reported Medications Ranolazine* (Ranexa*) 500 Mg Tab.sr.12h, 500 MG PO QHS, TAB 11/19/16 Aspirin Ec (Aspir 81) 81 Mg Tablet.dr, 81 MG PO DAILY, #30 TAB 11/19/16 Hydrochlorothiazide* (Hydrochlorothiazide*) 50 Mg Tab, 50 MG PO DAILY, #30 TAB 11/19/16 Hydrochlorothiazide* (Hydrochlorothiazide*) 25 Mg Tab, 25 MG PO BID, #60 TAB 11/19/16 Apixaban* (Eliquis*) 5 Mg Tablet, 5 MG PO BID, TAB 08/28/16 [hctz] No Conflict Check, 25 CAP DAILY 09/29/12 Gluc 2KCL/Chondr/Mary Hy/Hy Ac (GLUCOSAMINE & CHONDROITIN CAP) 1 Each Capsule, 1 EACH PO DAILY 09/29/12 Amlodipine Besylate* (Amlodipine Besylate*) 5 Mg Tablet, 10 MG PO DAILY 09/29/12 Aspirin (Aspirin Low Dose) 81 Mg Tablet.dr, daily 04/27/11 Metoprolol (Lopressor) 100 Mg Tablet, 50 MG PO DAILY 04/27/11 Prednisone (Prednisone) 20 Mg Tablet, 1 TAB PO BID 04/27/11 Discontinued Reported Medications Albuterol Sulfate* (Proair HFA*) 8.5 Gm Hfa.aer.ad 04/27/11 Allergies Allergies: Coded Allergies: No Known Allergy (Unverified , 11/19/16) PMhx/Soc History of Surgery: No Anesthesia Reaction: No Hx Neurological Disorder: No Hx Respiratory Disorders: No Hx Cardiac Disorders: Yes Hx Psychiatric Problems: No Hx Miscellaneous Medical Probl: No Hx Alcohol Use: No Hx Substance Use: No Hx Tobacco Use: No Smoking Status: Never smoker Physical Exam Vitals Vital Signs Date Time Temp Pulse Resp B/P Pulse Ox O2 Delivery O2 Flow Rate FiO2 11/19/16 04:13 66 16 130/74 100 Room Air 11/19/16 00:59 97.8 83 20 149/81 100 Physical Exam Const: [] No distress Head: Atraumatic Eyes: Normal Conjunctiva ENT: Normal External Ears, Nose and Mouth. No extra feeling of warmth on palpation of the face. Neck: Full range of motion..~ No meningismus. Resp: Clear to auscultation bilaterally Cardio: Irregularly irregular, no murmurs Abd: Soft, non tender, non distended. Normal bowel sounds Skin: No petechiae or rashes Back: No midline or flank tenderness Ext: No cyanosis, or edema Neur: Awake and alert and oriented 3, no focal deficits Psych: Normal Mood and Affect Result Diagram: 11/19/16 0206 11/19/16 0206 Results 24 hrs Laboratory Tests Test 11/19/16 02:06 White Blood Count 5.010^3/ul Red Blood Count 4.8710^6/ul Hemoglobin 14.5g/dl Hematocrit 44.4% Mean Corpuscular Volume 91.2fl Mean Corpuscular Hemoglobin 29.8pg Mean Corpuscular Hemoglobin Concent 32.7g/dl Red Cell Distribution Width 13.7% Platelet Count 81238^3/UL Mean Platelet Volume 11.8fl Neutrophils % 60.6% Lymphocytes % 28.7% Monocytes % 8.7% Eosinophils % 1.0% Basophils % 0.6% Nucleated Red Blood Cells % 0.0/100WBC Neutrophils # 3.010^3/ul Lymphocytes # 1.410^3/ul Monocytes # 0.410^3/ul Eosinophils # 0.110^3/ul Basophils # 0.010^3/ul Nucleated Red Blood Cells # 0.010^3/ul Sodium Level 142mmol/L Potassium Level 3.4mmol/L Chloride Level 102mmol/L Carbon Dioxide Level 30mmol/L Anion Gap 13 Blood Urea Nitrogen 10mg/dl Creatinine 0.68mg/dl Glucose Level 114mg/dl Calcium Level 9.6mg/dl Troponin I < 0.012ng/ml B-Type Natriuretic Peptide 490PG/ML Procedures/[facility] Patient with atrial fibrillation may have had paroxysmal RVR. However after she arrived the emergency room she had no apparent abnormalities. Entire time she was asking if she could leave yet. I talked her into staying for her laboratories. No signs of ischemia. Has been rate controlled and has good follow-up since arrival. She insists on leaving soon and I see to admission currently is asymptomatic. I am going to discharge her with primary care follow -up in the next 2 days and return precautions if she has any chest pain or any other concerning symptoms EKG interpretation: Atrial fibrillation rate of 79, 2 PVCs, right bundle branch block, will axis, inverted T waves in the lateral leads. Monitor interpretation rate controlled A. fib without other arrhythmia. Occasional PVCs Chest x-ray interpretation: No acute process, no widened mediastinum, no pulmonary edema, no infiltrates, no fractures. Departure Diagnosis: Primary Impression: Palpitations Condition: Stable Patient Instructions: Palpitations Referrals: NIKOLAI DUNNE (PCP) Additional Instructions: Call your primary care doctor TOMORROW for an appointment during the next 1-2 days. Obtain an appointment for a neuro referral. See the doctor sooner or return here if your condition worsens before your appointment time. LINDSAY FARRIS DO Nov 19, 2016 05:18
== END 2016-11-19 04:24 | disposition home or self-care (01) ==
LOC: E/R 00:50
DX: R00.2 Palpitations (principal); Z79.82 Long term (current) use of aspirin
CPT/HCPCS: 36415; 71010; 80048; 83880; 84484; 85025; 93005; Z7502

== ENCOUNTER 2017-03-22 03:39 | Observation (INO) | END 2017-03-24 15:46 | disposition home or self-care (01) ==

== ENCOUNTER 2018-05-16 16:44 | Emergency (ER) | payer OTHER ==
[~2018-05-16] VITALS: Ht 162.6 cm; Wt 80.3 kg
[~2018-05-16 16:44] MED LIST changes: -ALBU8.5H3; -ASPI-664; +ASPI-818; -GLUC1CAP48 PO; +HYDR25TA6 PO; +LORA0.5T PO; +METO-448 PO; -METO100T PO; -PRED20TA PO; +RANO500T2 PO; -hctz
[2018-05-16 16:47] VITALS: Ht 162.6 cm; Wt 80.3 kg
--- NOTE | 2018-05-16 21:24 | ERD ---
ER Documentation Chief Complaint Chief Complaint SOB x 2 hrs ago; has cough for several days HPI This is a 63-year-old female presents emergency department with complaints of cough for more than a week, shortness of breath today. Denies chest pain, chest pressure, left arm pain. LMP: Denies headache, head injury, loss of consciousness, dizziness, neck pain, neck stiffness, throat pain, difficulty swallowing, difficulty breathing lying flat, shoulder pain, chest pain, back pain, abdominal pain, nausea, vomiting, constipation, diarrhea, urinary symptoms, or possibility being , loss of bowel and bladder control, trauma, injury, falls, difficulty walking due to pain, numbness or tingling sensation, calf pain, recent travel, recent major surgery in the last 3 weeks, calf pain, recent long travel, recent exposure to any illness, recent antibiotic use in the last 3 months, fever, chills, seizures. Past medical history: Hypertension. Cardiac disease. Medication: Aspirin. Eliquis. Surgical history: Social: Denies smoking, use of alcoholic beverages, use of illegal drugs. ROS All systems reviewed and are negative except as per history of present illness. Medications Home Meds Active Scripts Acetaminophen* (Tylophen*) 500 Mg Capsule, 1 CAP PO Q6H PRN for PAIN AND OR ELEVATED TEMP, #20 CAP Prov:EMILY SHARP 05/16/18 Guaifenesin-Dextromethorphan* (Robafen* DM) 100MG/10MG/5ML Liquid, 5 ML PO Q6H PRN for COUGH, #120 ML Prov:EMILY SHARP 05/16/18 Azithromycin* (Zithromax*) 250 Mg Tablet, 250 MG PO .DAPHNE DIRECTED, #6 TAB TAKE 500 MG (2 TABS) THE FIRST DAY THEN 250 MG (1 TAB) DAYS 2-5 Prov:ARONIRENESUSIE Nj 05/16/18 Amoxicillin/Potassium Clav (Amox-Clav 875-125 mg Tablet) 875-125 mg Tab, 1 TAB PO BID for 7 Days, #14 TAB Prov:EMILY SHARP 05/16/18 Metoprolol Tartrate* (Lopressor*) 25 Mg Tab, 25 MG PO BID for 30 Days, TAB Prov:JAYDEN MOSER 03/24/17 Lorazepam* (Lorazepam*) 0.5 Mg Tablet, 0.5 MG PO Q6 PRN for ANXIETY, #30 TAB Prov:JAYDEN MOSER 03/24/17 Reported Medications Hydrochlorothiazide* (Hydrochlorothiazide*) 25 Mg Tab, 25 MG PO DAILY, #30 TAB 03/22/17 Ranolazine* (Ranexa*) 500 Mg Tab.sr.12h, 500 MG PO BID, TAB 11/19/16 Hydrochlorothiazide* (Hydrochlorothiazide*) 25 Mg Tab, 25 MG PO DAILY, #60 TAB 11/19/16 Apixaban* (Eliquis*) 5 Mg Tablet, 5 MG PO BID, TAB 08/28/16 Amlodipine Besylate* (Amlodipine Besylate*) 5 Mg Tablet, 10 MG PO DAILY 09/29/12 Aspirin (Aspirin Low Dose) 81 Mg Tablet.dr, daily 04/27/11 Allergies Allergies: Coded Allergies: No Known Allergy (Unverified , 11/19/16) PMhx/Soc History of Surgery: No Anesthesia Reaction: No Hx Neurological Disorder: No Hx Respiratory Disorders: No Hx Cardiac Disorders: Yes (HTN) Hx Psychiatric Problems: Yes (anxiety) Hx Miscellaneous Medical Probl: No Hx Alcohol Use: No Hx Substance Use: No Hx Tobacco Use: No Physical Exam Vitals Physical Exam Const: No acute distress Head: Atraumatic Eyes: Normal Conjunctiva. Eyeballs are not sunken. No signs of severe dehydration. ENT: Normal External Ears, Nose and Mouth. Bilateral ears: TMs are not erythematous. No bleeding. No discharge. No hearing loss. No mastoid tenderness. Nose: There is no frontal or maxillary sinus tenderness to palpation. Throat: Uvula is midline nondisplaced. Tonsils are +1 bilaterally without redness and without exudates. Tolerating secretions. Patent airway. Speaks full and clear sentences No tripoding.. Neck: Full range of motion. No meningismus. No nuchal rigidity. No signs of meningeal irritation. Resp: Clear to auscultation bilaterally. No accessory muscle use in breathing. Chest area: No vesicular lesions. No crepitus. Cardio: Regular rate and rhythm, no murmurs Abd: Soft, non tender, non distended. Normal bowel sounds Skin: No petechiae or rashes. Color appears normal for ethnicity. No skin tenting. No signs of severe dehydration. Back: No midline or flank tenderness Ext: No cyanosis, or edema Neur: Awake and alert. No neurological deficits. Psych: Normal Mood and Affect Results 24 hrs Laboratory Tests Test 05/16/18 22:06 White Blood Count 5.1 10^3/ul Red Blood Count 4.42 10^6/ul Hemoglobin 13.6 g/dl Hematocrit 42.0 % Mean Corpuscular Volume 95.0 fl Mean Corpuscular Hemoglobin 30.8 pg Mean Corpuscular Hemoglobin Concent 32.4 g/dl Red Cell Distribution Width 13.7 % Platelet Count 227 10^3/UL Mean Platelet Volume 10.6 fl Immature Granulocytes % 0.200 % Neutrophils % 62.8 % Lymphocytes % 25.7 % Monocytes % 10.9 % Eosinophils % 0.0 % Basophils % 0.4 % Nucleated Red Blood Cells % 0.0 /100WBC Immature Granulocytes # 0.010 10^3/ul Neutrophils # 3.2 10^3/ul Lymphocytes # 1.3 10^3/ul Monocytes # 0.6 10^3/ul Eosinophils # 0.0 10^3/ul Basophils # 0.0 10^3/ul Nucleated Red Blood Cells # 0.0 10^3/ul Prothrombin Time 14.7 Sec Prothrombin Time Ratio 1.1 INR International Normalized Ratio 1.14 Activated Partial Thromboplast Time 30.5 Sec Sodium Level 141 mmol/L Potassium Level 3.9 mmol/L Chloride Level 101 mmol/L Carbon Dioxide Level 31 mmol/L Anion Gap 9 Blood Urea Nitrogen 10 mg/dl Creatinine 0.63 mg/dl Est Glomerular Filtrat Rate mL/min > 60 mL/min Glucose Level 112 mg/dl Calcium Level 9.6 mg/dl Total Bilirubin 0.7 mg/dl Direct Bilirubin 0.00 mg/dl Indirect Bilirubin 0.7 mg/dl Aspartate Amino Transf (AST/SGOT) 58 IU/L Alanine Aminotransferase (ALT/SGPT) 45 IU/L Alkaline Phosphatase 90 IU/L Troponin I < 0.012 ng/ml Total Protein 7.9 g/dl Albumin 4.3 g/dl Globulin 3.60 g/dl Albumin/Globulin Ratio 1.19 Current Medications Medications Dose Sig/Jordon Start Time Status Last (Trade) Ordered Route PRN Stop Time Admin Dose Reason Admin Aspirin 325 mg ONCE ONCE 05/16/18 DC (Aspirin) PO 22:00 05/16/18 22:01 Ceftriaxone 1 gm ONCE ONCE 05/16/18 DC Sodium IM 23:30 (Rocephin) 05/16/18 23:39 Ceftriaxone 50 ml @ ONCE ONCE 05/17/18 DC 05/16/18 Sodium 100 mls/hr IVPB 00:00 23:52 05/17/18 00:22 Procedures/MDM Diagnostic tests: Blood works: Reviewed. Chest x-ray: 1. Patchy infiltrate in the lateral basilar right lower lobe, suspicious for pneumonia. 2. Stable borderline cardiomegaly without sylvester pulmonary vascular congestion. First EKG at 2133: Atrial fibrillation with a rate of 70 (controlled). No STEM I. Read by supervising physician. Second EKG at 23:29: Atrial fibrillation with a rate of 62 (controlled). No STEMI. Read by supervising physician. Treatment: Aspirin p.o. Ceftriaxone IM. Re-evaluation: Denies chest pain. Respirations even and unlabored. Lung sounds are clear to auscultation. No neurological deficits. Stated that she feels comfortable going home. Differential diagnosis I have low suspicion for acute microinfarction, acute coronary syndrome, pneumothorax, hemothorax, bronchospasm, status asthmaticus. Final diagnosis: Pneumonia. Prescription: Amoxicillin. Azithromycin. Robafen. Follow-up with PCP in the next 24-48 hours. Come back here in the emergency department for any new symptoms or any worsening symptoms. All questions and concerns were answered. Patient and family members verbalized understanding and agreed with plan of care. Hemodynamically stable on discharge. Departure Diagnosis: Primary Impression: Pneumonia Condition: Stable Additional Instructions: Follow-up with PCP in the next 24-48 hours. Come back here in the emergency department for any new symptoms or any worsening symptoms. EMILY SHARP May 16, 2018 21:24
[2018-05-16] MEDS ORDERED: ASPIRIN 325 MG TAB PO ONE (22:00)
[2018-05-16] MEDS ORDERED: AZIT250T PO (23:26)
[2018-05-16] MEDS ORDERED: AMOX1TAB10 PO (23:26)
[2018-05-16] MEDS ORDERED: ACET500C5 PO (23:26)
[2018-05-16] MEDS ORDERED: GUAI-227 PO (23:26)
[2018-05-16] MEDS ORDERED: CEFTRIAXONE 1 GM INJ IM ONE (23:30)
[2018-05-17] MEDS ORDERED: CEFTRIAXONE 1 GM/50 ML (PMX) 50 ML IVPB ONE
[2018-05-17 00:19] VITALS: BP 118/68; PULSE 72; RESP 16
== END 2018-05-17 00:21 | disposition home or self-care (01) ==
LOC: FTE 16:44
DX: J18.9 Pneumonia, unspecified organism (principal); I10 Essential (primary) hypertension; Z79.82 Long term (current) use of aspirin
CPT/HCPCS: 71046; 80053; 84484; 85025; 85610; 85730; 93005; J0696; 96374

== ENCOUNTER 2018-05-24 16:29 | Emergency (ER) | payer OTHER ==
[~2018-05-24] VITALS: Ht 165.1 cm; Wt 81.3 kg
[~2018-05-24 16:29] MED LIST changes: +ACET500C5 PO; +AMOX1TAB10 PO; +AZIT250T PO; +GUAI-227 PO
[2018-05-24 17:02] VITALS: Ht 165.1 cm; Wt 81.3 kg
--- NOTE | 2018-05-24 21:13 | ERD ---
ER Documentation Chief Complaint Chief Complaint cough, chest congestion X 1 wk HPI 63-year-old female, with history of anxiety and hypertension, presents the emergency department, complaining of 1 week with upper respiratory symptoms including cough, runny nose and chest congestion. The patient was seen here 1 week ago and started on amoxicillin and azithromycin. The patient denies fevers, no chills, no shortness of breath, no chest pain, no leg edema, no abdominal pain. ROS All systems reviewed and are negative except as per history of present illness. Medications Home Meds Active Scripts Acetaminophen* (Tylophen*) 500 Mg Capsule, 1 CAP PO Q6H PRN for PAIN AND OR ELEVATED TEMP, #20 CAP Prov:EMILY SHARP 05/16/18 Guaifenesin-Dextromethorphan* (Robafen* DM) 100MG/10MG/5ML Liquid, 5 ML PO Q6H PRN for COUGH, #120 ML Prov:EMILY SHARP 05/16/18 Azithromycin* (Zithromax*) 250 Mg Tablet, 250 MG PO .DAPHNE DIRECTED, #6 TAB TAKE 500 MG (2 TABS) THE FIRST DAY THEN 250 MG (1 TAB) DAYS 2-5 Prov:EMILY SHARP 05/16/18 Amoxicillin/Potassium Clav (Amox-Clav 875-125 mg Tablet) 875-125 mg Tab, 1 TAB PO BID for 7 Days, #14 TAB Prov:EMILY SHARP 05/16/18 Metoprolol Tartrate* (Lopressor*) 25 Mg Tab, 25 MG PO BID for 30 Days, TAB Prov:JAYDEN MOSER 03/24/17 Lorazepam* (Lorazepam*) 0.5 Mg Tablet, 0.5 MG PO Q6 PRN for ANXIETY, #30 TAB Prov:JAYDEN MOSER 03/24/17 Reported Medications Hydrochlorothiazide* (Hydrochlorothiazide*) 25 Mg Tab, 25 MG PO DAILY, #30 TAB 03/22/17 Ranolazine* (Ranexa*) 500 Mg Tab.sr.12h, 500 MG PO BID, TAB 11/19/16 Hydrochlorothiazide* (Hydrochlorothiazide*) 25 Mg Tab, 25 MG PO DAILY, #60 TAB 11/19/16 Apixaban* (Eliquis*) 5 Mg Tablet, 5 MG PO BID, TAB 08/28/16 Amlodipine Besylate* (Amlodipine Besylate*) 5 Mg Tablet, 10 MG PO DAILY 09/29/12 Aspirin (Aspirin Low Dose) 81 Mg Tablet.dr, daily 04/27/11 Allergies Allergies: Coded Allergies: No Known Allergy (Unverified , 05/24/18) PMhx/Soc History of Surgery: No Anesthesia Reaction: No Hx Neurological Disorder: No Hx Respiratory Disorders: No Hx Cardiac Disorders: Yes (HTN) Hx Psychiatric Problems: Yes (anxiety) Hx Miscellaneous Medical Probl: No Hx Alcohol Use: No Hx Substance Use: No Hx Tobacco Use: No FmHx Family History: No diabetes, No coronary disease Physical Exam Vitals Vital Signs Date Temp Pulse Resp B/P (MAP) Pulse Ox O2 O2 Flow FiO2 Time Delivery Rate 05/24/18 97.7 74 18 132/57 100 17:02 (82) Physical Exam Const: No acute distress Head: Atraumatic Eyes: Normal Conjunctiva ENT: Normal External Ears, Nose and Mouth. Neck: Full range of motion. No meningismus. Resp: Rhonchi to auscultation bilaterally Cardio: Regular rate and rhythm, no murmurs Abd: Soft, non tender, non distended. Normal bowel sounds Skin: No petechiae or rashes Back: No midline or flank tenderness Ext: No cyanosis, or edema Neur: Awake and alert Psych: Normal Mood and Affect Procedures/MDM At the time of discharge, patient with nontoxic appearance, vital signs stable, no respiratory distress. Differential diagnosis include but not limited to: upper vs lower respiratory infection bacterial/viral/fungal. Asthma, COPD, pneumonitis, allergies, GERD. Less likely pulmonary embolism, cardiac related or malignancy, but still is a possibility. Physical examination and clinical presentation consistent most likely with pneumonia with adequate response to the treatment. During the ED course the patient remained stable, no new complaints. Treatment options and clinical impression discussed with the patient who agrees with management. The patient is stable to be treated outpatient and will be discharged home. Some side effects of prescribed medications (headache, rash, nausea, vomiting, diarrhea, interactions with other medications) were reviewed. The patient needs to follow up with the primary care provider in the next 48h. If symptoms persist, worsen or new symptoms develop, then patient should return to the ED immediately. Disclaimer: Inadvertent spelling and grammatical errors are likely due to EHR/dictation software use and do not reflect on the overall quality of patient care. Also, please note that the electronic time recorded on this note does not necessarily reflect the actual time of the patient encounter. Departure Diagnosis: Primary Impression: Cough Condition: Stable Additional Instructions: Thank you very much for allowing us to participate in your care. Your health and safety is our top priority at [facility]. Call your primary care doctor TOMORROW for an appointment during the next 2-4 days and bring all the information and medications prescribed. Have prescriptions filled and follow precisely the directions on the label. If the symptoms get worse and your provider is unavailable, return to the Emergency Department immediately. MARIAN VALDEZ MD May 24, 2018 21:13
[2018-05-24] MEDS ORDERED: ALBUTEROL 0.083% (NEB) 2.5 MG/3 ML AMP HHN STA (21:46)
[2018-05-24] MEDS ORDERED: PROM5SYR2 PO (21:50)
[2018-05-24] MEDS ORDERED: IPRA3AMP29 INH (21:50)
[2018-05-24] MEDS ORDERED: NEBU1KIT3 MC (21:52)
[2018-05-24] MEDS ORDERED: IPRATROPIUM (NEB) 0.5 MG/2.5 ML AMP HHN ONE (22:00)
[2018-05-24 23:05] VITALS: BP 134/86; PULSE 90; RESP 18
== END 2018-05-24 23:06 | disposition home or self-care (01) ==
LOC: FTE 16:29
DX: R05 Cough (principal); I10 Essential (primary) hypertension; Z79.82 Long term (current) use of aspirin; Z79.01 Long term (current) use of anticoagulants
CPT/HCPCS: 94664; Z7502; Z7610

== ENCOUNTER 2018-06-16 00:43 | Emergency (ER) | payer OTHER ==
[~2018-06-16] VITALS: Ht 157.5 cm; Wt 82.0 kg
[~2018-06-16 00:43] MED LIST changes: +IPRA3AMP29 INH; +NEBU1KIT3 MC; +PROM5SYR2 PO
[2018-06-16 00:47] VITALS: Ht 157.5 cm; Wt 82.0 kg
--- NOTE | 2018-06-16 02:36 | ERD ---
ER Documentation Chief Complaint Chief Complaint Cough x 1 week HPI 63-year-old female, with history of hypertension, presents to the emergency department, complaining of cough, productive of greenish sputum for 1 week. The patient is also complaining of subjective fever but no chest pain, no shortness of breath, no leg edema. ROS All systems reviewed and are negative except as per history of present illness. Medications Home Meds Active Scripts Amoxicillin* (Amoxicillin*) 500 Mg Cap, 2 CAP PO BID for 7 Days, CAP Prov:MARIAN VALDEZ MD 06/16/18 Promethazine HCl/Codeine (Prometh-Codein 6.25-10 mg/5 ml) 5 Ml Syrup, 5 ML PO QHS, #60 ML Prov:MARIAN VALDEZ MD 06/16/18 Inhaler, Assist Devices (Compact Space Chamber) 1 Each Spacer, EACH MC, #1 Prov:MARIAN VALDEZ MD 06/16/18 Albuterol Sulfate* (Proair HFA*) 8.5 Gm Hfa.aer.ad, 2 PUFF INH Q4, #1 INHALER Prov:MARIAN VALDEZ MD 06/16/18 Nebulizer (Compact Compressor Nebulizer) 1 Each Each, EACH MC Q6, #1 Prov:MARIAN VALDEZ MD 05/24/18 Promethazine HCl/Codeine (Prometh-Codein 6.25-10 mg/5 ml) 5 Ml Syrup, 5 ML PO QHS, #60 ML Prov:MARIAN VALDEZ MD 05/24/18 Ipratropium-Albuterol (Ipratropium-Albuterol) 0.5-3 Mg/3 Ml Ampul.neb, 3 ML INH Q6H PRN for SHORTNESS OF BREATH, #30 AMP Prov:MARIAN VALDEZ MD 05/24/18 Acetaminophen* (Tylophen*) 500 Mg Capsule, 1 CAP PO Q6H PRN for PAIN AND OR ELEVATED TEMP, #20 CAP Prov:EMILY SHARP 05/16/18 Guaifenesin-Dextromethorphan* (Robafen* DM) 100MG/10MG/5ML Liquid, 5 ML PO Q6H PRN for COUGH, #120 ML Prov:PASILABAN,KLAR F 05/16/18 Azithromycin* (Zithromax*) 250 Mg Tablet, 250 MG PO .DAPHNE DIRECTED, #6 TAB TAKE 500 MG (2 TABS) THE FIRST DAY THEN 250 MG (1 TAB) DAYS 2-5 Prov:EMILY SHARP 05/16/18 Amoxicillin/Potassium Clav (Amox-Clav 875-125 mg Tablet) 875-125 mg Tab, 1 TAB PO BID for 7 Days, #14 TAB Prov:EMILY SHARP 05/16/18 Metoprolol Tartrate* (Lopressor*) 25 Mg Tab, 25 MG PO BID for 30 Days, TAB Prov:EHSANJAYDEN 03/24/17 Lorazepam* (Lorazepam*) 0.5 Mg Tablet, 0.5 MG PO Q6 PRN for ANXIETY, #30 TAB Prov:JAYDEN MOSER 03/24/17 Reported Medications Hydrochlorothiazide* (Hydrochlorothiazide*) 25 Mg Tab, 25 MG PO DAILY, #30 TAB 03/22/17 Ranolazine* (Ranexa*) 500 Mg Tab.sr.12h, 500 MG PO BID, TAB 11/19/16 Hydrochlorothiazide* (Hydrochlorothiazide*) 25 Mg Tab, 25 MG PO DAILY, #60 TAB 11/19/16 Apixaban* (Eliquis*) 5 Mg Tablet, 5 MG PO BID, TAB 08/28/16 Amlodipine Besylate* (Amlodipine Besylate*) 5 Mg Tablet, 10 MG PO DAILY 09/29/12 Aspirin (Aspirin Low Dose) 81 Mg Tablet., daily 04/27/11 Allergies Allergies: Coded Allergies: No Known Allergy (Unverified , 06/16/18) PMhx/Soc History of Surgery: No Anesthesia Reaction: No Hx Neurological Disorder: No Hx Respiratory Disorders: No Hx Cardiac Disorders: Yes (HTN) Hx Psychiatric Problems: Yes (anxiety) Hx Miscellaneous Medical Probl: No Hx Alcohol Use: No Hx Substance Use: No Hx Tobacco Use: No FmHx Family History: diabetes Physical Exam Vitals Vital Signs Date Temp Pulse Resp B/P (MAP) Pulse Ox O2 O2 Flow FiO2 Time Delivery Rate 06/16/18 96.9 80 16 139/83 100 00:47 (101) Physical Exam Const: No acute distress Head: Atraumatic Eyes: Normal Conjunctiva ENT: Normal External Ears, Nose and Mouth. Neck: Full range of motion. No meningismus. Resp: Mild to auscultation bilaterally Cardio: Regular rate and rhythm, no murmurs Abd: Soft, non tender, non distended. Normal bowel sounds Skin: No petechiae or rashes Back: No midline or flank tenderness Ext: No cyanosis, or edema Neur: Awake and alert Psych: Normal Mood and Affect Procedures/MDM At the time of discharge, patient with nontoxic appearance, vital signs stable, no respiratory distress. Differential diagnosis include but not limited to: upper vs lower respiratory infection bacterial/viral/fungal. Asthma, COPD, pneumonitis, allergies, GERD. Less likely pulmonary embolism, cardiac related or malignancy, but still is a possibility. Physical examination and clinical presentation consistent most likely with viral infection with possible early superimposed bacterial infection, because of the history of recent pneumonia, I consider that at this time, the patient will benefit from antibiotics. During the ED course the patient remained stable, no new complaints. Treatment options and clinical impression discussed with the patient who agrees with management. The patient is stable to be treated outpatient and will be discharged home. Some side effects of prescribed medications (headache, rash, nausea, vomiting, diarrhea, interactions with other medications) were reviewed. The patient needs to follow up with the primary care provider in the next 48h. If symptoms persist, worsen or new symptoms develop, then patient should return to the ED immediately. Disclaimer: Inadvertent spelling and grammatical errors are likely due to EHR/dictation software use and do not reflect on the overall quality of patient care. Also, please note that the electronic time recorded on this note does not necessarily reflect the actual time of the patient encounter. Departure Diagnosis: Primary Impression: Cough Additional Impression: Fever Condition: Stable Additional Instructions: Thank you very much for allowing us to participate in your care. Your health and safety is our top priority at [facility]. The evaluation in the emergency department has been done to rule out an acute emergency, therefore, chronic conditions like malignancy or other diseases have not been evaluated; therefore, you need to follow up with a primary care provider in the next 48h. If symptoms persist, worsen or new symptoms develop, then patient should return to the ED immediately. Call your primary care doctor TOMORROW for an appointment during the next 2-4 days and bring all the information provided. Have prescriptions filled and follow precisely the directions on the label. If the symptoms get worse and your provider is unavailable, return to the E mergency Department immediately. MARIAN VALDEZ MD Jun 16, 2018 02:36
[2018-06-16] MEDS ORDERED: PROM5SYR2 PO (03:00)
[2018-06-16] MEDS ORDERED: INHA-3 MC (03:00)
[2018-06-16] MEDS ORDERED: ALBU8.5H8 INH (03:00)
[2018-06-16] MEDS ORDERED: AMOX500C2 PO (03:01)
[2018-06-16 03:25] VITALS: BP 127/85; PULSE 71; RESP 16
== END 2018-06-16 03:25 | disposition home or self-care (01) ==
LOC: FTE 00:43
DX: R05 Cough (principal); R50.9 Fever, unspecified; I10 Essential (primary) hypertension; Z79.82 Long term (current) use of aspirin
CPT/HCPCS: 99283

== ENCOUNTER 2018-07-10 17:38 | Emergency (ER) | payer OTHER ==
[~2018-07-10] VITALS: Ht 154.9 cm; Wt 66.0 kg
[~2018-07-10 17:38] MED LIST changes: +ALBU8.5H8 INH; +AMOX500C2 PO; +INHA-3 MC
[2018-07-10 18:10] VITALS: Ht 154.9 cm; Wt 66.0 kg
[2018-07-10] MEDS ORDERED: ALBUTEROL 0.083% (NEB) 2.5 MG/3 ML AMP HHN STA (18:22)
[2018-07-10] MEDS ORDERED: IPRATROPIUM (NEB) 0.5 MG/2.5 ML AMP HHN ONE (18:30)
[2018-07-10] MEDS ORDERED: DEXAMETHASONE 10 MG/ML 1 ML INJ IM ONE (18:30)
[2018-07-10] MEDS ORDERED: PRED20TA PO (19:09)
[2018-07-10] MEDS ORDERED: ALBU2.5V3 NEB (19:09)
[2018-07-10] MEDS ORDERED: D-ME473S2 PO (19:10)
--- NOTE | 2018-07-10 19:12 | ERD ---
ER Documentation Chief Complaint Chief Complaint CHRONIC COUGH HPI 63-year-old female presents with intermittent cough for last 3 months. She had a x-ray last week but does not have the results patient has fevers, chest pain. She has a nebulizer machine but does not have any medication. She has been treated with antibiotics for pneumonia within the last month. ROS All systems reviewed and are negative except as per history of present illness. Medications Home Meds Active Scripts Dextromethorphan Hb-Promethazine Hcl* (Promethazine DM* Syrup) 473 Ml Syrup, 5 ML PO Q6 PRN for COUGH for 5 Days, ML Prov:REBA TORRES MD 07/10/18 Albuterol Sulfate* (Albuterol Sulfate* Neb) 0.083%-3 Ml Neb, 2.5 MG NEB Q4H, #30 VIAL Prov:REBA TORRES MD 07/10/18 Prednisone* (Prednisone*) 20 Mg Tab, 40 MG PO DAILY for 4 Days, TAB Start July 11, 2018 Prov:REBA TORRES MD 07/10/18 Amoxicillin* (Amoxicillin*) 500 Mg Cap, 2 CAP PO BID for 7 Days, CAP Prov:MARIAN VALDEZ MD 06/16/18 Promethazine HCl/Codeine (Prometh-Codein 6.25-10 mg/5 ml) 5 Ml Syrup, 5 ML PO QH S, #60 ML Prov:MARIAN VALDEZ MD 06/16/18 Inhaler, Assist Devices (Compact Space Chamber) 1 Each Spacer, EACH MC, #1 Prov:MARIAN VALDEZ MD 06/16/18 Albuterol Sulfate* (Proair HFA*) 8.5 Gm Hfa.aer.ad, 2 PUFF INH Q4, #1 INHALER Prov:MARIAN VALDEZ MD 06/16/18 Nebulizer (Compact Compressor Nebulizer) 1 Each Each, EACH MC Q6, #1 Prov:MARIAN VALDEZ MD 05/24/18 Promethazine HCl/Codeine (Prometh-Codein 6.25-10 mg/5 ml) 5 Ml Syrup, 5 ML PO QHS, #60 ML Prov:MARIAN VALDEZ MD 05/24/18 Ipratropium-Albuterol (Ipratropium-Albuterol) 0.5-3 Mg/3 Ml Ampul.neb, 3 ML INH Q6H PRN for SHORTNESS OF BREATH, #30 AMP Prov:AMRIAN VALDEZ MD 05/24/18 Acetaminophen* (Tylophen*) 500 Mg Capsule, 1 CAP PO Q6H PRN for PAIN AND OR EL EVATED TEMP, #20 CAP Prov:EMILY SHARP 05/16/18 Guaifenesin-Dextromethorphan* (Robafen* DM) 100MG/10MG/5ML Liquid, 5 ML PO Q6H PRN for COUGH, #120 ML Prov:EMILY SHARP 05/16/18 Azithromycin* (Zithromax*) 250 Mg Tablet, 250 MG PO .TitiPACK DIRECTED, #6 TAB TAKE 500 MG (2 TABS) THE FIRST DAY THEN 250 MG (1 TAB) DAYS 2-5 Prov:EMILY SHARP 05/16/18 Amoxicillin/Potassium Clav (Amox-Clav 875-125 mg Tablet) 875-125 mg Tab, 1 TAB PO BID for 7 Days, #14 TAB Prov:EMILY SHARP 05/16/18 Metoprolol Tartrate* (Lopressor*) 25 Mg Tab, 25 MG PO BID for 30 Days, TAB Prov:JAYDEN MOSER 03/24/17 Lorazepam* (Lorazepam*) 0.5 Mg Tablet, 0.5 MG PO Q6 PRN for ANXIETY, #30 TAB Prov:JAYDEN MOSER 03/24/17 Reported Medications Hydrochlorothiazide* (Hydrochlorothiazide*) 25 Mg Tab, 25 MG PO DAILY, #30 TAB 03/22/17 Ranolazine* (Ranexa*) 500 Mg Tab.sr.12h, 500 MG PO BID, TAB 11/19/16 Hydrochlorothiazide* (Hydrochlorothiazide*) 25 Mg Tab, 25 MG PO DAILY, #60 TAB 11/19/16 Apixaban* (Eliquis*) 5 Mg Tablet, 5 MG PO BID, TAB 08/28/16 Amlodipine Besylate* (Amlodipine Besylate*) 5 Mg Tablet, 10 MG PO DAILY 09/29/12 Aspirin (Aspirin Low Dose) 81 Mg Tablet., daily 04/27/11 Allergies Allergies: Coded Allergies: No Known Allergy (Unverified , 06/16/18) PMhx/Soc History of Surgery: No Anesthesia Reaction: No Hx Neurological Disorder: No Hx Respiratory Disorders: No Hx Cardiac Disorders: Yes (HTN) Hx Psychiatric Problems: Yes (anxiety) Hx Miscellaneous Medical Probl: No Hx Alcohol Use: No Hx Substance Use: No Hx Tobacco Use: No Smoking Status: Never smoker FmHx Family History: No diabetes, No coronary disease, No other Physical Exam Vitals Vital Signs Date Temp Pulse Resp B/P (MAP) Pulse Ox O2 O2 Flow FiO2 Time Delivery Rate 07/10/18 75 20 97 21 18:36 07/10/18 97.7 61 18 119/60 97 18:10 (79) Physical Exam Const: No acute distress Head: Atraumatic Eyes: Normal Conjunctiva ENT: Normal External Ears, Nose and Mouth. TMs and oropharynx normal. Neck: Full range of motion. No meningismus. Resp: Diffuse wheezing. No rales or retractions appreciated. Cardio: Regular rate and rhythm, no murmurs Abd: Soft, non tender, non distended. Normal bowel sounds Skin: No petechiae or rashes Back: No midline or flank tenderness Ext: No cyanosis, or edema Neur: Awake and alert Psych: Normal Mood and Affect Results 24 hrs Current Medications Medications Dose Sig/Jordon Start Time Status Last (Trade) Ordered Route PRN Stop Time Admin Dose Reason Admin 10 mg ONCE ONCE 07/10/18 DC 07/10/18 Dexamethasone IM 18:30 18:45 (Decadron) 07/10/18 18:31 Albuterol 5 mg ONCE STAT 07/10/18 DC 07/10/18 (Proventil HHN 18:22 18:34 0.083% (Neb)) 07/10/18 18:24 Ipratropium 1 mg ONCE ONCE 07/10/18 DC 07/10/18 [place] HHN 18:30 18:34 (Atrovent 07/10/18 18:31 0.02% (Neb)) Procedures/MDM Patient given albuterol and Atrovent. Patient had clear lungs on serial exam. She is given Decadron 10 mg IM. She has no signs of pneumonia and her lungs on serial exam. Patient presents with wheezing with a history of a chronic cough for last few months. She said radiologic studies as well as treatment for pneumonia. She has no signs of pneumonia, hypoxemia, respiratory distress. Will treat with continuation of prednisone, albuterol nebulizer solution for her nebulizer. Will defer repeat x-rays as she is advised to follow-up with primary doctor for results of her most recent x-ray. She was advised to see winderman for recurrent persistent cough despite multiple treatment for asthma exacerbations and antibiotics. The patient was stable with no new complaints during the ER course. Clinically, there is no current evidence to suggest meningitis, sepsis, acute abdomen, pneumonia, stroke, acute coronary syndrome, pulmonary embolism, aortic dissection or any other emergent condition appearing to require further evaluation or hospitalization. Patient counseled regarding my diagnostic impression and care plan. Prior to discharge all questions answered. Pt agrees with treatment plan and understands strict return precautions. Pt is instructed to follow up with primary care provider within 24- 48 hours. Precautionary instructions provided including instructions to return to the ER if not improving or for any worsening or changing symptoms or concerns. Disclaimer: Inadvertent spelling and grammatical errors are likely due to EHR/dictation software use and do not reflect on the overall quality of patient care. Also, please note that the electronic time recorded on this note does not necessarily reflect the actual time of the patient encounter. Departure Diagnosis: Primary Impression: Wheezing Additional Impression: Cough Condition: Stable Patient Instructions: Asthma, Cough, Chronic, Uncertain Cause, (Adult) Additional Instructions: See primary doctor for follow-up. Recheck otherwise for new worsening symptoms. Recommend pulmonary evaluation for persistent coughing and wheezing. REBA TORRES MD July 10, 2018 19:12
[2018-07-10 19:19] VITALS: BP 116/84; PULSE 98; RESP 18
== END 2018-07-10 19:21 | disposition home or self-care (01) ==
LOC: FTE 17:38
DX: R06.2 Wheezing (principal); I10 Essential (primary) hypertension; Z79.82 Long term (current) use of aspirin
CPT/HCPCS: 94664; 96372; J1100; Z7502; Z7610

== ENCOUNTER 2018-10-18 18:37 | Emergency (ER) | payer OTHER ==
[~2018-10-18] VITALS: Wt 83.5 kg
[~2018-10-18 18:37] MED LIST changes: +ALBU2.5V3 NEB; +D-ME473S2 PO; +FURO20TA3 PO; +LOSA25TA12 PO; +METO-335 PO; +PRED20TA PO
[2018-10-18 21:08] VITALS: BP 130/81; PULSE 70; RESP 19
== END 2018-10-18 21:10 | disposition home or self-care (01) ==
LOC: E/R 18:37
DX: R06.02 Shortness of breath (principal); I10 Essential (primary) hypertension; Z79.82 Long term (current) use of aspirin; Z79.01 Long term (current) use of anticoagulants
CPT/HCPCS: 36415; 71045; 80048; 84484; 85025; 93005; Z7502

== ENCOUNTER 2018-11-12 13:09 | Emergency (ER) | payer OTHER ==
[~2018-11-12] VITALS: Wt 82.6 kg
[~2018-11-12 13:09] MED LIST changes: -ALBU2.5V3 NEB; -ALBU8.5H8 INH; -AMLO-145 PO; -AMOX1TAB10 PO; -AMOX500C2 PO; -ASPI-818; -AZIT250T PO; -D-ME473S2 PO; -GUAI-227 PO; +IBUP-1542 PO; +IBUP-1561 PO; -INHA-3 MC; -IPRA3AMP29 INH; -LORA0.5T PO; -METO-448 PO; -NEBU1KIT3 MC; -PRED20TA PO; -PROM5SYR2 PO; -RANO500T2 PO
[2018-11-12 13:17] VITALS: PULSE 77; RESP 20; Wt 82.6 kg
[2018-11-12 13:56] VITALS: BP 126/75
== END 2018-11-12 14:17 | disposition home or self-care (01) ==
LOC: E/R 13:09
DX: T50.2X1A Poisoning by carbonic-anhydrase inhibitors, benzothiadiazides and other diuretics, accidental (unintentional), initial encounter (principal); T44.7X1A Poisoning by beta-adrenoreceptor antagonists, accidental (unintentional), initial encounter; I10 Essential (primary) hypertension
CPT/HCPCS: 99282

== ENCOUNTER 2018-12-11 15:58 | Emergency (ER) | payer OTHER ==
[~2018-12-11] VITALS: Ht 167.6 cm; Wt 81.8 kg
[2018-12-11 16:14] VITALS: BP 131/60; PULSE 78; RESP 18; Ht 167.6 cm; Wt 81.8 kg
[2018-12-11] MEDS ORDERED: ACETAMINOPHEN 500 MG TAB PO STA (17:03)
[2018-12-11] MEDS: IBUPROFEN 600 MG TAB PO ONE ×2 (17:10→17:13)
== END 2018-12-11 18:58 | disposition home or self-care (01) ==
LOC: FTE 15:58
DX: S60.212A Contusion of left wrist, initial encounter (principal); M85.80 Other specified disorders of bone density and structure, unspecified site; I10 Essential (primary) hypertension; W01.0XXA Fall on same level from slipping, tripping and stumbling without subsequent striking against object, initial encounter; Y92.512 Supermarket, store or market as the place of occurrence of the external cause; Z79.01 Long term (current) use of anticoagulants
CPT/HCPCS: 29125; 73110; 73130; Z7502; Z7610